=== PATIENT | female | born 1985 | race Caucasian/White ===

== ENCOUNTER 2017-03-04 21:46 | Emergency (ER) | payer OTHER ==
[~2017-03-04] VITALS: Ht 172.7 cm; Wt 81.8 kg
[2017-03-04] MEDS ORDERED: MOTRIN800 MG PO (23:14)
[2017-03-04 23:37] VITALS: BP 134/75
== END 2017-03-04 23:39 | disposition home or self-care (01) ==
LOC: EME 21:46
DX: S93.402A Sprain of unspecified ligament of left ankle, initial encounter (principal); W17.89XA Other fall from one level to another, initial encounter; Y92.008 Other place in unspecified non-institutional (private) residence as the place of occurrence of the external cause; Z87.891 Personal history of nicotine dependence
CPT/HCPCS: 73610; 99281; 99284

== ENCOUNTER 2017-11-09 21:00 | Emergency (ER) | payer OTHER ==
[~2017-11-09] VITALS: Ht 175.3 cm; Wt 88.9 kg
[~2017-11-09 21:00] MED LIST: MOTRIN800 MG PO
[2017-11-09 21:57] LABS: HEMATOCRIT 38.4 % (36.0-46.0); HEMOGLOBIN 12.9 G/DL (11.9-15.5); MCH 28.8 PG (29.0-34.0); MCHC 33.6 G/DL (30.0-36.0); MCV 85.7 FL (83-99); PLATELET COUNT 261 K/uL (156-360); RBC DIS.WIDTH-CV 13.8 % (11.8-14.6); RBC DIS.WIDTH-SD 43.3 % (39-53); RED BLOOD COUNT 4.48 M/uL (3.80-5.20); WHITE BLOOD COUNT 11.2 K/uL (4.1-10.2)
[2017-11-09 22:09] LABS: CHLORIDE 105 mEq/L (99-109); SODIUM 140 mEq/L (136-147)
[2017-11-09 22:11] LABS: GLUCOSE 97 mg/dL (70-99)
[2017-11-09 22:15] LABS: CREATININE 0.8 mg/dL (0.6-1.3); GFR ESTIMATE (CALCULATED) > 59 mL/min/; UREA NITROGEN (BUN) 15 mg/dL (9-23)
[2017-11-09] MEDS ORDERED: AMOXICILLIN875 MG PO (23:30)
[2017-11-09] MEDS ORDERED: MOTRIN600 MG PO (23:30)
[2017-11-09 23:36] VITALS: BP 135/74
[2017-11-09] MEDS ORDERED: VYVANSE40 MG PO (23:37)
== END 2017-11-09 23:38 | disposition home or self-care (01) ==
LOC: EME 21:00
DX: J02.9 Acute pharyngitis, unspecified (principal); Z87.891 Personal history of nicotine dependence
CPT/HCPCS: 71046; 80048; 85027; 87651 90; 99281; 99283